=== PATIENT | male | born 2000 | race Caucasian/White ===

== ENCOUNTER 2023-09-05 16:04 | Emergency (ER) | payer OTHER, SELFPAY ==
[2023-09-05 16:08] VITALS: BP 145/76; PULSE 88; RESP 14; TEMP 36.5; O2SAT 98; BMI 28.3
--- NOTE | 2023-09-05 17:16 | ED.SKABFB ---
HPI - Skin/Abscess/Foreign Bdy General Chief complaint: Skin/Abscess/Foreign Body Stated complaint: Nail puncture L foot yesterday Time Seen by Provider: 09/05/23 17:13 Source: patient Mode of arrival: ambulatory Limitations: no limitations History of Present Illness HPI narrative: Patient is a 23-year-old male presenting to emergency department for a puncture wound to his left foot. He was at work yesterday when he stepped on a nail through the medial portion of his shoe. Is concerned about his tetanus status and if he needs antibiotics. Denies any pain at this time. No other injuries. Is walking without problem. Related Data Previous Rx's ?Medication ?Instructions ?Recorded levofloxacin 750 mg tablet 750 mg PO DAILY #5 tabs 09/05/23 Allergies Allergy/AdvReac Type Severity Reaction Status Date / Time No Known Drug Allergies Allergy Verified 09/05/23 16:07 Review of Systems Narrative: Pertinent symptoms reviewed are negative unless stated HPI PFSH PFSH Social History Smoking Status: Never smoker How often do you have a drink containing alcohol: never AUDIT-C Alcohol total score: 0 Non-prescribed substance use: denies use Exam Narrative: Exam Narrative: Const: Well-nourished, Well-developed, in no distress Eyes: PERRL, no conjunctival injection, and symmetrical lids HENT: Atraumatic external nose and ears. Moist mucous membranes. MSK:Extremities w/o deformity, Normal Active ROM Skin: Warm, Dry. No rashes or lesions. Small puncture wound seen on the medial aspect of the left foot arch with no surrounding erythema Neuro: Normal Muscle tone, No focal neurological deficits. Psych: Awake, Alert, & Oriented x3. Appropriate mood and affect. Const: Vital Signs, click to edit/add: Vital Signs - 24 hr 09/05/23 16:08 Temperature 97.7 F Pulse Rate [Pulse Oximeter] 88 Respiratory Rate 14 Blood Pressure [Ri ght Upper Arm] 145/76 H Pulse Oximetry 98 Oxygen Delivery Me thod Room Air Course Vital Signs Vital signs: Initial Vital Signs Temperature 97.7 F 09/05/23 16:08 Temperature Source Temporal Artery Scan 09/05/23 16:08 Pulse Rate 88 09/05/23 16:08 Pulse Rhythm Regular 09/05/23 16:08 Respiratory Rate 14 09/05/23 16:08 Blood Pressure 145/76 H 09/05/23 16:08 Blood Pressure Mean 99 09/05/23 16:08 Blood Pressure Position Sitting 09/05/23 16:08 Pulse Oximetry 98 09/05/23 16:08 Oxygen Delivery Method Room Air 09/05/23 16:08 Vital Signs Temperature 97.7 F 09/05/23 16:08 Pulse Rate 88 09/05/23 16:08 Respiratory Rate 14 09/05/23 16:08 Blood Pressure 145/76 H 09/05/23 16:08 Pulse Oximetry 98 09/05/23 16:08 Oxygen Delivery Method Room Air 09/05/23 16:08 Temperature 97.7 F 09/05/23 16:08 Pulse Rate 88 09/05/23 16:08 Respiratory Rate 14 09/05/23 16:08 Blood Pressure 145/76 H 09/05/23 16:08 Pulse Oximetry 98 09/05/23 16:08 Oxygen Delivery Method Room Air 09/05/23 16:08 MDM - Skin/Abscess/Foreign Bdy MDM Narrative Medical decision making narrative: Past patient is 21-year-old male presenting for concern of puncture wound. His last tetanus was 2011. Considering his puncture wound was through a shoe there is concern for Pseudomonas and thus I spoke to him about starting antibiotics. I informed him that he can either start them right away or monitor his foot insert them if he sees signs of infection. I do not believe imaging is necessary at this time as is very unlikely any part of the nail was left in and the shoe fragments very unlikely to be seen on x-ray. I do not believe there is any fractures. Discharge Plan Discharge Clinical Impression: Puncture wound of foot, left Qualifiers: Encounter type: initial encounter Qualified Code(s): S91.332A - Puncture wound without foreign body, left foot, initial encounter Patient Disposition: Home, Self-Care Condition: Stable Instructions: Puncture Wound in the Foot (ED) Additional Instructions: You can either start the antibiotics right away or monitored her here foot for the next week for signs of infection. Signs of infection include worsening pain, swelling, redness around the area. If he notice any of this start the antibiotics. The start the antibiotics in symptoms worsen over the next 48-72 hours return for re-evaluation. Prescriptions: New levofloxacin 750 mg tablet 750 mg PO DAILY Qty: 5 0RF Follow Up/Referrals: Provider,Not a Local [Primary Care Provider] - Stand Alone Forms: [employer] Info Instructions
[2023-09-05] MEDS: TETANUS/DIPHTH/PERTUSSIS 0.5 ML SYRINGE IM (17:25)
[2023-09-05 17:32] VITALS: BP 145/76; PULSE 88; RESP 14; TEMP 36.5
== END 2023-09-05 17:25 | disposition home or self-care (01) ==
LOC: ED 17:24
PROVIDERS: Emergency Provider Student in an Organized Health Care Education/Training Program; PCP Pediatrics
DX: S91.332A Puncture wound without foreign body, left foot, initial encounter (principal); W45.0XXA Nail entering through skin, initial encounter
CPT/HCPCS: 90471; 90715; 99282; 99283